=== PATIENT | male | born 1970 | race African-American/Black ===

== ENCOUNTER 2018-09-10 08:38 | Inpatient (IN) | payer MEDICAID, OTHER ==
[~2018-09-10] VITALS: Ht 172.7 cm; Wt 64.5 kg
[2018-09-10 09:34] LABS: BASOPHILS % 0.9 % (0.0-2.0); CHLORIDE 91 mEq/L (98-107); EOSINOPHILS % 0.7 % (0.0-5.0); HEMATOCRIT. 25.4 % (42.0-52.0); HEMOGLOBIN. 9.1 g/dL (14.0-18.0); LYMPHOCYTES % 7.3 % (20.0-50.0); MEAN CORPUSCULAR HEMOGLOBIN 32.7 pg (28.0-32.0); MEAN CORPUSCULAR VOLUME 91.4 fL (80.0-94.0); MEAN PLATELET VOLUME 8.6 fl (7.4-10.4); NEUTROPHILS % 82.1 % (40.0-76.0); PLATELET 87 x1000/uL (130-400); RED BLOOD CELL COUNT 2.78 mill/uL (4.7-6.1); RED CELL DISTRIBUTION WIDTH 15.1 % (11.6-14.6)
[2018-09-10 09:35] LABS: INR 1.1; PROTHROMBIN TIME 11.2 sec (9.6-11.0)
[2018-09-10] MEDS ORDERED: HEPARIN 1000 UNITS/ML 10ML ONE (14:07)
[2018-09-10] MEDS ORDERED: HYDRALAZINE 20MG/ML VIAL IV ONE (14:15)
[2018-09-10 14:54] LABS: HAPTOGLOBIN <31.0 mg/dL (30-200)
[2018-09-10 15:12] LABS: C REACTIVE PROTEIN QUANT 1.8 mg/L (0.0-3.0)
[2018-09-10 15:21] LABS: PHOSPHORUS 8.7 mg/dL (2.5-4.9)
[2018-09-10 16:22] VITALS: BP 204/125
[2018-09-10 16:48] VITALS: BP 207/125
[2018-09-10] MEDS ORDERED: HYDRALAZINE 20MG/ML VIAL IV PRN ×2 (17:45→22:15)
[2018-09-10 18:00] VITALS: BP 209/127
[2018-09-10] MEDS ORDERED: ONDANSETRON HCL 4MG/2ML INJ IV PRN ×2 (19:00→22:15)
[2018-09-10 20:00] VITALS: BP 198/125
[2018-09-10] MEDS: CLONIDINE 0.2MG TABLET PO SCH (21:24)
[2018-09-10 22:00] VITALS: BP 184/100
[2018-09-10] MEDS ORDERED: DIPHENHYDRAMINE 50MG/ML VIAL IV PRN (22:15)
[2018-09-10] MEDS ORDERED: ACETAMINOPHEN 325MG TABLET PO PRN (22:15)
[2018-09-10 23:58] LABS: TOTAL IRON BINDING CAPACITY 253 ug/dL (250-450)
[2018-09-11] VITALS (12 sets, daily range): BP systolic 127–171; BP diastolic 56–105
[2018-09-11] MEDS: CLONIDINE 0.1MG TABLET PO PRN (02:29)
[2018-09-11] MEDS: SODIUM CHLORIDE 0.9% INJ 3ML FLUSH IVF SCH ×3 (06:04→21:24)
[2018-09-11] MEDS: CLONIDINE 0.2MG TABLET PO SCH ×3 (06:04→21:23)
[2018-09-11 06:22] LABS: HEMATOCRIT. 21.7 % (42.0-52.0); HEMOGLOBIN. 7.8 g/dL (14.0-18.0); MEAN CORPUSCULAR HEMOGLOBIN 32.7 pg (28.0-32.0); MEAN CORPUSCULAR VOLUME 91.6 fL (80.0-94.0); MEAN PLATELET VOLUME 8.9 fl (7.4-10.4); PLATELET 73 x1000/uL (130-400); RED BLOOD CELL COUNT 2.37 mill/uL (4.7-6.1); RED CELL DISTRIBUTION WIDTH 15.5 % (11.6-14.6)
[2018-09-11] MEDS: SEVELAMER CARBONATE 800 MG TABLET PO SCH ×3 (07:57→16:35)
[2018-09-11] MEDS: AMLODIPINE 10MG TABLET PO SCH (07:57)
[2018-09-11 08:57] LABS: PLATELET ESTIMATE DECREASED
[2018-09-11 09:20] LABS: CHLORIDE 100 mEq/L (98-107)
[2018-09-11 09:39] LABS: PHOSPHORUS 7.5 mg/dL (2.5-4.9)
[2018-09-11 09:41] LABS: TOTAL IRON BINDING CAPACITY 205 ug/dL (250-450)
[2018-09-11 13:46] LABS: CLARITY URINE CLOUDY (CLEAR); COLOR URINE DARK YELLOW (YELLOW); KETONES URINE NEGATIVE (NEGATIVE); LEUKOCYTE ESTERASE URINE 1+ (NEGATIVE); NITRITE URINE NEGATIVE (NEGATIVE); OCCULT BLOOD URINE 2+ (NEGATIVE); PROTEIN URINE 3+ (NEGATIVE); SPECIFIC GRAVITY URINE 1.014 (1.005-1.030); UROBILINOGEN URINE 0.2 E.U./dL (0.2-1.0)
[2018-09-11] MEDS: EPOETIN ALFA 4000UNITS/ML VIAL SUBCUT SCH (21:23)
[2018-09-12] VITALS (17 sets, daily range): BP systolic 114–150; BP diastolic 61–97
[2018-09-12] MEDS: SODIUM CHLORIDE 0.9% INJ 3ML FLUSH IVF SCH ×3 (05:24→21:50)
[2018-09-12] MEDS: CLONIDINE 0.2MG TABLET PO SCH ×3 (05:30→21:50)
[2018-09-12] MEDS: SEVELAMER CARBONATE 800 MG TABLET PO SCH ×3 (07:20→17:02)
[2018-09-12 07:56] LABS: INR 1.1; PROTHROMBIN TIME 11.6 sec (9.6-11.0)
[2018-09-12 08:02] LABS: BASOPHILS % 0.7 % (0.0-2.0); EOSINOPHILS % 2.3 % (0.0-5.0); LYMPHOCYTES % 10.8 % (20.0-50.0); MEAN CORPUSCULAR HEMOGLOBIN 32.6 pg (28.0-32.0); MEAN CORPUSCULAR VOLUME 93.3 fL (80.0-94.0); MEAN PLATELET VOLUME 10.2 fl (7.4-10.4); MONOCYTES % 11.6 % (2.0-8.0); NEUTROPHILS % 74.6 % (40.0-76.0); PLATELET 94 x1000/uL (130-400); RED BLOOD CELL COUNT 2.12 mill/uL (4.7-6.1); RED CELL DISTRIBUTION WIDTH 16.4 % (11.6-14.6)
[2018-09-12 08:20] LABS: HEMATOCRIT. 19.8 % (42.0-52.0); HEMOGLOBIN. 6.9 g/dL (14.0-18.0)
[2018-09-12 08:26] LABS: CHLORIDE 99 mEq/L (98-107)
[2018-09-12] MEDS: AMLODIPINE 10MG TABLET PO SCH (08:59)
[2018-09-12 17:25] LABS: ANTI-NUCLEAR ANTIBODIES DIRECT Negative (Negative)
[2018-09-12 20:30] LABS: HEMATOCRIT 23.2 % (42.0-52.0)
[2018-09-12 22:49] LABS: HEPATITIS B SURFACE ANTIGEN NEGATIVE
[2018-09-12 23:18] LABS: HEPATITIS A AB IGM NEGATIVE (NEGATIVE)
[2018-09-12 23:46] LABS: INR 1.1; PROTHROMBIN TIME 11.2 sec (9.6-11.0)
[2018-09-13] VITALS (22 sets, daily range): BP systolic 126–181; BP diastolic 76–115
[2018-09-13] MEDS: CLONIDINE 0.2MG TABLET PO SCH ×3 (05:04→22:00)
[2018-09-13] MEDS: SODIUM CHLORIDE 0.9% INJ 3ML FLUSH IVF SCH ×3 (06:02→22:04)
[2018-09-13] MEDS: SEVELAMER CARBONATE 800 MG TABLET PO SCH ×3 (07:20→16:27)
[2018-09-13] MEDS ORDERED: FENTANYL CITRATE/PF 50MCG/ML 2ML VIAL ONE (07:28)
[2018-09-13 08:07] LABS: COMPLEMENT C3 75 mg/dL (82-167)
[2018-09-13] MEDS ORDERED: FENTANYL CITRATE/PF 50MCG/ML 2ML VIAL IV ONE (08:45)
[2018-09-13] MEDS: AMLODIPINE 10MG TABLET PO SCH (09:49)
[2018-09-13 13:08] LABS: HEMATOCRIT 25.1 % (42.0-52.0); HEMOGLOBIN 8.8 g/dL (14.0-18.0)
[2018-09-13 13:10] LABS: ANTI-MYELOPEROXIDASE AB < 9.0 U/mL (0.0-9.0); ANTI-PROTEINASE 3 ABS < 3.5 U/mL (0.0-3.5)
[2018-09-13 13:37] LABS: CHLORIDE 94 mEq/L (98-107)
[2018-09-13 15:06] LABS: ATYPICAL P-ANCA <1:20 titer (Neg:<1:20); CYTOPLASMIC C-ANCA <1:20 titer (Neg:<1:20); PERINUCLEAR P-ANCA <1:20 titer (Neg:<1:20)
[2018-09-13] MEDS ORDERED: POTASSIUM CHLORIDE 20MEQ TABLET SR PO NR (20:15)
[2018-09-13] MEDS: EPOETIN ALFA 4000UNITS/ML VIAL SUBCUT SCH (21:59)
[2018-09-14] VITALS (13 sets, daily range): BP systolic 120–168; BP diastolic 49–108
[2018-09-14] MEDS: CLONIDINE 0.2MG TABLET PO SCH ×3 (05:40→21:33)
[2018-09-14] MEDS: SODIUM CHLORIDE 0.9% INJ 3ML FLUSH IVF SCH ×3 (05:41→21:42)
[2018-09-14] MEDS: SEVELAMER CARBONATE 800 MG TABLET PO SCH ×3 (08:09→17:48)
[2018-09-14] MEDS: AMLODIPINE 5MG TABLET PO SCH ×2 (08:09→21:32)
[2018-09-14] MEDS: EPOETIN ALFA 4000UNITS/ML VIAL SUBCUT SCH (21:33)
[2018-09-14] MEDS ORDERED: POTASSIUM CHLORIDE 20MEQ TABLET SR PO SCH (22:00)
[2018-09-15] VITALS (13 sets, daily range): BP systolic 101–170; BP diastolic 62–107
[2018-09-15] MEDS: SODIUM CHLORIDE 0.9% INJ 3ML FLUSH IVF SCH ×3 (06:14→21:55)
[2018-09-15] MEDS: CLONIDINE 0.2MG TABLET PO SCH ×3 (06:14→22:00)
[2018-09-15 07:56] LABS: INR 1.1; PARTIAL THROMBOPLASTIN TIME 27.9 sec (23.4-31.0); PROTHROMBIN TIME 10.8 sec (9.6-11.0)
[2018-09-15] MEDS: SEVELAMER CARBONATE 800 MG TABLET PO SCH ×3 (09:18→17:38)
[2018-09-15] MEDS: AMLODIPINE 5MG TABLET PO SCH ×2 (09:23→20:40)
[2018-09-15 11:01] LABS: HEMATOCRIT. 22.5 % (42.0-52.0); HEMOGLOBIN. 7.9 g/dL (14.0-18.0); MEAN CORPUSCULAR HEMOGLOBIN 33.3 pg (28.0-32.0); MEAN CORPUSCULAR VOLUME 94.4 fL (80.0-94.0); MEAN PLATELET VOLUME 8.2 fl (7.4-10.4); PLATELET 144 x1000/uL (130-400); RED BLOOD CELL COUNT 2.38 mill/uL (4.7-6.1); RED CELL DISTRIBUTION WIDTH 15.7 % (11.6-14.6)
[2018-09-15 19:31] LABS: PLATELET ESTIMATE NORMAL
[2018-09-15] MEDS ORDERED: EPOETIN ALFA 10000UNITS/ML VIAL SUBCUT NR (21:00)
[2018-09-16] VITALS (13 sets, daily range): BP systolic 114–153; BP diastolic 54–93
[2018-09-16] MEDS: SODIUM CHLORIDE 0.9% INJ 3ML FLUSH IVF SCH ×3 (05:34→21:01)
[2018-09-16] MEDS: CLONIDINE 0.2MG TABLET PO SCH ×3 (05:40→21:02)
[2018-09-16] MEDS: SEVELAMER CARBONATE 800 MG TABLET PO SCH ×3 (08:20→17:44)
[2018-09-16] MEDS: AMLODIPINE 5MG TABLET PO SCH ×2 (08:20→21:02)
[2018-09-16] MEDS: LACTULOSE 20G/30ML UDC PO PRN (11:24)
[2018-09-16 12:44] LABS: BASOPHILS % 0.7 % (0.0-2.0); EOSINOPHILS % 1.9 % (0.0-5.0); HEMATOCRIT. 22.7 % (42.0-52.0); HEMOGLOBIN. 7.9 g/dL (14.0-18.0); LYMPHOCYTES % 10.8 % (20.0-50.0); MEAN CORPUSCULAR HEMOGLOBIN 33.2 pg (28.0-32.0); MEAN CORPUSCULAR VOLUME 95.1 fL (80.0-94.0); MEAN PLATELET VOLUME 8.7 fl (7.4-10.4); NEUTROPHILS % 76.6 % (40.0-76.0); PLATELET 175 x1000/uL (130-400); RED BLOOD CELL COUNT 2.39 mill/uL (4.7-6.1); RED CELL DISTRIBUTION WIDTH 15.7 % (11.6-14.6)
[2018-09-17] VITALS (19 sets, daily range): BP systolic 128–174; BP diastolic 74–109
[2018-09-17] MEDS: SODIUM CHLORIDE 0.9% INJ 3ML FLUSH IVF SCH ×3 (05:08→21:59)
[2018-09-17] MEDS: CLONIDINE 0.2MG TABLET PO SCH ×3 (05:09→22:00)
[2018-09-17 05:45] LABS: BASOPHILS % 0.5 % (0.0-2.0); EOSINOPHILS % 2.1 % (0.0-5.0); HEMATOCRIT. 23.2 % (42.0-52.0); HEMOGLOBIN. 7.9 g/dL (14.0-18.0); LYMPHOCYTES % 9.6 % (20.0-50.0); MEAN CORPUSCULAR HEMOGLOBIN 32.3 pg (28.0-32.0); MEAN CORPUSCULAR VOLUME 95.3 fL (80.0-94.0); MEAN PLATELET VOLUME 8.6 fl (7.4-10.4); NEUTROPHILS % 77.8 % (40.0-76.0); PLATELET 216 x1000/uL (130-400); RED BLOOD CELL COUNT 2.44 mill/uL (4.7-6.1); RED CELL DISTRIBUTION WIDTH 15.4 % (11.6-14.6)
[2018-09-17] MEDS: SEVELAMER CARBONATE 800 MG TABLET PO SCH ×3 (07:43→18:12)
[2018-09-17] MEDS: AMLODIPINE 5MG TABLET PO SCH ×2 (08:27→22:00)
[2018-09-17] MEDS ORDERED: CEFAZOLIN 1000MG PREMIX 50 ML IV ONE ×2 (12:34→13:45)
[2018-09-17] MEDS ORDERED: FENTANYL CITRATE/PF 50MCG/ML 2ML VIAL ONE (12:35)
[2018-09-17] MEDS ORDERED: LIDOCAINE HCL/EPINEPHRINE 1%-EPI 1:100,000 20 ML VIAL ONE (12:37)
[2018-09-17] MEDS ORDERED: SODIUM BICARBONATE 4% (2.4MEQ) 5ML VIAL IV ONE (12:37)
[2018-09-17] MEDS ORDERED: LIDOCAINE HCL 1% 20ML VIAL (Pyxis) INJ ONE (12:38)
[2018-09-17] MEDS ORDERED: HEPARIN 1000 UNITS/ML 10ML ONE (12:44)
[2018-09-17] MEDS ORDERED: FENTANYL CITRATE/PF 50MCG/ML 2ML VIAL IV ONE (13:45)
[2018-09-17 14:58] LABS: HIV SCREEN 4G Non Reactive (Non Reactive)
[2018-09-18 00:33] VITALS: BP 158/92
[2018-09-18 04:27] VITALS: BP 129/80
[2018-09-18] MEDS: CLONIDINE 0.2MG TABLET PO SCH ×3 (06:17→21:15)
[2018-09-18] MEDS: SODIUM CHLORIDE 0.9% INJ 3ML FLUSH IVF SCH ×3 (06:17→21:15)
[2018-09-18 08:00] VITALS: BP 126/78
[2018-09-18] MEDS: SEVELAMER CARBONATE 800 MG TABLET PO SCH (08:24)
[2018-09-18] MEDS: AMLODIPINE 5MG TABLET PO SCH ×2 (08:24→21:12)
[2018-09-18 12:00] VITALS: BP 122/79
[2018-09-18 16:00] VITALS: BP 144/93
[2018-09-18 20:41] VITALS: BP 151/95
[2018-09-18] MEDS: EPOETIN ALFA 4000UNITS/ML VIAL SUBCUT SCH (21:14)
[2018-09-18 22:44] LABS: VITAMIN B12 SERUM 876 pg/mL (211-911)
[2018-09-19 00:03] VITALS: BP 133/73
[2018-09-19 04:46] VITALS: BP 139/89
[2018-09-19] MEDS: SODIUM CHLORIDE 0.9% INJ 3ML FLUSH IVF SCH (06:55)
[2018-09-19] MEDS: LACTULOSE 20G/30ML UDC PO PRN (06:56)
[2018-09-19] MEDS: CLONIDINE 0.2MG TABLET PO SCH (06:56)
[2018-09-19] MEDS: SEVELAMER CARBONATE 800 MG TABLET PO SCH (08:33)
[2018-09-19] MEDS: AMLODIPINE 5MG TABLET PO SCH (08:33)
[2018-09-19 12:00] VITALS: BP 125/79
[2018-09-19 16:00] VITALS: BP 149/93
[2018-09-19] MEDS: CLONIDINE 0.1MG TABLET PO PRN (16:02)
[2018-09-19 16:13] VITALS: BP 149/93
[2018-09-19 17:34] LABS: HEMATOCRIT. 23.7 % (42.0-52.0); MEAN CORPUSCULAR HEMOGLOBIN 32.8 pg (28.0-32.0); MEAN CORPUSCULAR VOLUME 96.4 fL (80.0-94.0); MEAN PLATELET VOLUME 7.7 fl (7.4-10.4); PLATELET 284 x1000/uL (130-400); RED BLOOD CELL COUNT 2.46 mill/uL (4.7-6.1); RED CELL DISTRIBUTION WIDTH 15.6 % (11.6-14.6)
[2018-09-19 17:53] LABS: PLATELET ESTIMATE NORMAL
== END 2018-09-19 17:20 | disposition home or self-care (01) | DRG 660 ==
LOC: ER 08:38 → CANRESERV 13:45 → ENRESERV 13:45 → 3WST 14:16 → EDBEDREQSVC 14:20 → EDBEDREQ 14:39 → ENRESERV 14:40 → 6WST 09-16 22:38
PROVIDERS: ADMIT Internal Medicine; ATTEND Internal Medicine
PROC: 05HY33Z Insertion of Infusion Device into Upper Vein, Percutaneous Approach (ICD-10-PCS; 2018-09-10)
PROC: B543ZZA Ultrasonography of Right Jugular Veins, Guidance (ICD-10-PCS; 2018-09-10)
PROC: 5A1D70Z Performance of Urinary Filtration, Intermittent, Less than 6 Hours Per Day (ICD-10-PCS; 2018-09-10)
PROC: 5A1D70Z Performance of Urinary Filtration, Intermittent, Less than 6 Hours Per Day (ICD-10-PCS; 2018-09-11)
PROC: 30233N1 Transfusion of Nonautologous Red Blood Cells into Peripheral Vein, Percutaneous Approach (ICD-10-PCS; 2018-09-12)
PROC: 0TB13ZX Excision of Left Kidney, Percutaneous Approach, Diagnostic (ICD-10-PCS; principal; 2018-09-13)
PROC: 5A1D70Z Performance of Urinary Filtration, Intermittent, Less than 6 Hours Per Day (ICD-10-PCS; 2018-09-13)
PROC: 5A1D70Z Performance of Urinary Filtration, Intermittent, Less than 6 Hours Per Day (ICD-10-PCS; 2018-09-15)
PROC: 0JH63XZ Insertion of Tunneled Vascular Access Device into Chest Subcutaneous Tissue and Fascia, Percutaneous Approach (ICD-10-PCS; 2018-09-17)
PROC: 02HV33Z Insertion of Infusion Device into Superior Vena Cava, Percutaneous Approach (ICD-10-PCS; 2018-09-17)
PROC: B5181ZA Fluoroscopy of Superior Vena Cava using Low Osmolar Contrast, Guidance (ICD-10-PCS; 2018-09-17)
PROC: B548ZZA Ultrasonography of Superior Vena Cava, Guidance (ICD-10-PCS; 2018-09-17)
PROC: 02PYX3Z Removal of Infusion Device from Great Vessel, External Approach (ICD-10-PCS; 2018-09-17)
DX: M31.1 Thrombotic microangiopathy (principal); N17.9 Acute kidney failure, unspecified; R34 Anuria and oliguria; E87.2 Acidosis; E83.39 Other disorders of phosphorus metabolism; D58.9 Hereditary hemolytic anemia, unspecified; E87.1 Hypo-osmolality and hyponatremia; I10 Essential (primary) hypertension; D50.9 Iron deficiency anemia, unspecified; K59.00 Constipation, unspecified; R17 Unspecified jaundice; R74.0 Nonspecific elevation of levels of transaminase and lactic acid dehydrogenase [LDH]; M13.0 Polyarthritis, unspecified; Z86.61 Personal history of infections of the central nervous system; Z87.891 Personal history of nicotine dependence; Z99.2 Dependence on renal dialysis
CPT/HCPCS: 36415; 36558; 36589; 71045; 74176; 76942; 77001; 80048; 80076; 81003; 82378; 82607; 83010; 83090; 83520; 83540; 83550; 83615; 84100; 84132; 85014; 85018; 85049; 85240; 85384; 85397; 85651; 86038; 86140; 86160; 86256; 86705; 86709; 86803; 86850; 86900; 86920; 87340; 87389; 88305; 88346; 88348; 93005; 96374; 97162; 97166; 99152; 99153; 99285; C1750; C1752; C1769; J0360; J0690; J0885; J1200; J1644; J2405; J3010; J3490; P9016; G0500

== ENCOUNTER 2018-10-20 05:27 | Inpatient (IN) | payer MEDICAID ==
[~2018-10-20] VITALS: Ht 172.7 cm; Wt 64.4 kg
[2018-10-20] VITALS (93 sets, daily range): BP systolic 107–162; BP diastolic 59–103
[2018-10-20] MEDS ORDERED: ONDANSETRON HCL 4MG/2ML INJ IV STA (05:36)
[2018-10-20] MEDS ORDERED: LABETALOL 5MG/ML SYR 20 MG/4 ML SYRINGE IV ONE ×2 (05:45→06:00)
[2018-10-20] MEDS ORDERED: NICARDIPINE 50 MG in SODIUM CHLORIDE 0.9% 230 ML IV STA (05:50)
[2018-10-20] MEDS ORDERED: NICARDIPINE 40MG/200ML PREMIX 200 ML IV SCH (06:00)
[2018-10-20 06:24] LABS: HEMATOCRIT. 26.9 % (42.0-52.0); HEMOGLOBIN. 9.1 g/dL (14.0-18.0); MEAN CORPUSCULAR HEMOGLOBIN 30.6 pg (28.0-32.0); MEAN CORPUSCULAR VOLUME 90.4 fL (80.0-94.0); MEAN PLATELET VOLUME 7.1 fl (7.4-10.4); PLATELET 252 x1000/uL (130-400); RED BLOOD CELL COUNT 2.98 mill/uL (4.7-6.1); RED CELL DISTRIBUTION WIDTH 13.2 % (11.6-14.6)
[2018-10-20 06:26] LABS: CHLORIDE 99 mEq/L (98-107)
[2018-10-20 06:30] LABS: ETHANOL BLOOD < 10 mg/dL
[2018-10-20] MEDS ORDERED: NICARDIPINE 100 MG in SODIUM CHLORIDE 0.9% 60 ML IV PRN ×2 (06:45→08:15)
[2018-10-20] MEDS ORDERED: PROPOFOL 10MG/ML 100ML 100 ML IV SCH (06:45)
[2018-10-20] MEDS ORDERED: DEXT 5%/LACTATED RINGERS 1,000 ML IV SCH (06:45)
[2018-10-20 06:54] LABS: PLATELET ESTIMATE NORMAL
[2018-10-20] MEDS ORDERED: CEFAZOLIN 1000MG PREMIX 50 ML IV SCH (08:00)
[2018-10-20] MEDS: NICARDIPINE 100 MG in SODIUM CHLORIDE 0.9% 60 ML IV PRN ×2 (08:15→18:23)
[2018-10-20] MEDS ORDERED: MORPHINE SULFATE 4 MG/ML CPJ (NOT FOR IM USE) IV NR (08:17)
[2018-10-20] MEDS ORDERED: MORPHINE SULFATE 4 MG/ML CPJ (NOT FOR IM USE) IV ONE ×2 (08:17→09:17)
[2018-10-20 08:28] LABS: BG BASE EXCESS 2.4 mmol/L (-2.0-2.0); BG CARBOXYHEMOGLOBIN 0.3 % (0.5-1.5); BG DEOXYHEMOGLOBIN 1.2 % (0.0-5.0); BG FRACTION INSPIRED OXYGEN 100; BG HCO3 ACT 26.1 mmol/L (22.0-26.0); BG METHEMOGLOBIN 0.1 % (0.0-1.5); BG OXYGEN SATURATION 98.8 % (92.0-98.5); BG OXYHEMOGLOBIN 98.4 % (94.0-97.0); BG PCO2 37.2 mmHg (35.0-45.0); BG PH 7.464 (7.350-7.450); BG SAMPLE SITE LEFT BRACHIAL; BG TIDAL VOLUME(mL) 500 mL; BG TOTAL HEMOGLOBIN 11.4 g/dL (12.0-18.0); BG VENT MODE VENT - A/C; BG VENT RATE 14 set
[2018-10-20] MEDS ORDERED: MORPHINE SULFATE 2 MG/ML CPJ (NOT FOR IM USE) IV NR (08:31)
[2018-10-20] MEDS ORDERED: MORPHINE SULFATE 2 MG/ML CPJ (NOT FOR IM USE) IV ONE (08:32)
[2018-10-20] MEDS ORDERED: LEVETIRACETAM 500MG PREMIX 100 ML IV SCH (09:00)
[2018-10-20] MEDS ORDERED: FENTANYL CITRATE/PF 1,000 MCG in SODIUM CHLORIDE 0.9% 80 ML IV PRN (09:00)
[2018-10-20] MEDS ORDERED: MORPHINE SULFATE 10 MG/ML CPJ IV NR (09:23)
[2018-10-20] MEDS ORDERED: SODIUM CHLORIDE 0.9% 250 ML IV ONE (10:01)
[2018-10-20] MEDS ORDERED: ONDANSETRON HCL 4MG/2ML INJ IV PRN (10:15)
[2018-10-20] MEDS ORDERED: ACETAMINOPHEN 650MG SUPP PR PRN (10:15)
[2018-10-20] MEDS ORDERED: NITROGLYCERIN 0.4MG TABLET SL SL PRN (10:15)
[2018-10-20] MEDS ORDERED: MORPHINE SULFATE 4 MG/ML CPJ (NOT FOR IM USE) IV PRN (10:15)
[2018-10-20] MEDS ORDERED: DEXT 5%/0.45% NACL 1000ML 1,000 ML IV SCH (10:15)
[2018-10-20] MEDS ORDERED: CLONIDINE 0.1MG TABLET PO PRN (10:15)
[2018-10-20] MEDS ORDERED: EPINEPHRINE 0.1MG/ML (1:10,000) 10ML SYR IV PRN (10:15)
[2018-10-20] MEDS ORDERED: ATROPINE SULFATE 1MG/10ML SYR IV PRN (10:15)
[2018-10-20] MEDS ORDERED: IPRATROPIUM BROMIDE (0.02%) 0.5MG/2.5ML NEB HHN PRN (10:15)
[2018-10-20] MEDS ORDERED: ACETAMINOPHEN 650MG/20.3ML UDC GT PRN (10:15)
[2018-10-20] MEDS ORDERED: LIDOCAINE 2G PREMIX 500 ML IV PRN (10:15)
[2018-10-20] MEDS ORDERED: LIDOCAINE HCL 2% 5ML SYRINGE IV PRN (10:15)
[2018-10-20] MEDS ORDERED: DEXTROSE 50% WATER 50ML SYRINGE IV PRN ×2 (10:30)
[2018-10-20] MEDS: CEFAZOLIN 500MG in DEXTROSE 5% WATER 50ML IV SCH (11:00)
[2018-10-20 11:26] LABS: INR 1.2; PARTIAL THROMBOPLASTIN TIME 26.2 sec (23.4-31.0); PROTHROMBIN TIME 12.2 sec (9.6-11.0)
[2018-10-20] MEDS ORDERED: IPRATROPIUM/ALBUTEROL 0.5-3(2.5)MG/3ML NEB HHN SCH (12:00)
[2018-10-20] MEDS: DEXT 5%/0.9% NACL 1,000 ML IV SCH (12:00)
[2018-10-20] MEDS ORDERED: VANCOMYCIN 1250MG in DEXTROSE 5% WATER 250ML IV SCH (12:30)
[2018-10-20] MEDS: LEVETIRACETAM 500MG in SODIUM CHLORIDE 0.9% 100ML IV SCH ×2 (12:44→23:53)
[2018-10-20] MEDS: PROPOFOL 10MG/ML 100ML 100 ML IV PRN ×3 (12:46→23:53)
[2018-10-20] MEDS: BLOOD SUGAR DIAGNOSTIC STRIP TEST SCH ×2 (13:00→17:30)
[2018-10-20] MEDS: FAMOTIDINE 20MG/2ML VIAL IV SCH (13:21)
[2018-10-20] MEDS: DEXAMETHASONE 4MG/ML 1ML VIAL IV SCH ×3 (13:21→23:53)
[2018-10-20] MEDS: PIPERACILLIN/TAZOBACTAM 2.25 G in DEXTROSE 5% WATER 50 ML IV SCH ×3 (13:21→23:53)
[2018-10-20] MEDS: INSULIN LISPRO 100 UNITS/ML SUBCUT SCH ×2 (13:22→17:30)
[2018-10-20 14:16] LABS: CLARITY URINE CLOUDY (CLEAR); COLOR URINE YELLOW (YELLOW); KETONES URINE NEGATIVE (NEGATIVE); LEUKOCYTE ESTERASE URINE 2+ (NEGATIVE); NITRITE URINE NEGATIVE (NEGATIVE); OCCULT BLOOD URINE 2+ (NEGATIVE); PH URINE >=9.0 (4.5-8.0); PROTEIN URINE 4+ (NEGATIVE); SPECIFIC GRAVITY URINE 1.014 (1.005-1.030)
[2018-10-20] MEDS: IPRATROPIUM BROMIDE (0.02%) 0.5MG/2.5ML NEB HHN SCH ×2 (14:20→21:00)
[2018-10-20 14:50] LABS: *AMPHETAMINES SCREEN URINE NEGATIVE (NEGATIVE); *BARBITURATES SCREEN URINE NEGATIVE (NEGATIVE); *BENZODIAZEPINES SCREEN URINE NEGATIVE (NEGATIVE); *COCAINE SCREEN URINE NEGATIVE (NEGATIVE)
[2018-10-20 14:51] LABS: CANNABINOID URINE SCREEN PRESUMTIVE POSITIVE (NEGATIVE); METHADONE URINE SCREEN NEGATIVE (NEGATIVE); OPIATES URINE SCREEN NEGATIVE (NEGATIVE); PHENCYCLIDINE URINE SCREEN NEGATIVE (NEGATIVE)
[2018-10-20 16:51] LABS: CREATINE KINASE MB FRACTION 4.7 ng/mL (0.5-3.6)
[2018-10-21] VITALS (94 sets, daily range): BP systolic 102–144; BP diastolic 52–94
[2018-10-21] MEDS: IPRATROPIUM BROMIDE (0.02%) 0.5MG/2.5ML NEB HHN SCH ×4 (00:22→19:45)
[2018-10-21] MEDS: PROPOFOL 10MG/ML 100ML 100 ML IV PRN ×4 (04:42→21:02)
[2018-10-21 04:52] LABS: HEMATOCRIT. 23.4 % (42.0-52.0); MEAN CORPUSCULAR HEMOGLOBIN 30.8 pg (28.0-32.0); MEAN CORPUSCULAR VOLUME 89.7 fL (80.0-94.0); MEAN PLATELET VOLUME 7.5 fl (7.4-10.4); PLATELET 185 x1000/uL (130-400); RED CELL DISTRIBUTION WIDTH 13.1 % (11.6-14.6)
[2018-10-21 04:58] LABS: CHLORIDE 103 mEq/L (98-107)
[2018-10-21 05:12] LABS: CREATINE KINASE MB FRACTION 5.9 ng/mL (0.5-3.6)
[2018-10-21] MEDS: BLOOD SUGAR DIAGNOSTIC STRIP TEST SCH ×5 (05:59→23:27)
[2018-10-21] MEDS: INSULIN LISPRO 100 UNITS/ML SUBCUT SCH ×5 (05:59→23:27)
[2018-10-21] MEDS: PIPERACILLIN/TAZOBACTAM 2.25 G in DEXTROSE 5% WATER 50 ML IV SCH ×2 (05:59→11:23)
[2018-10-21] MEDS: DEXAMETHASONE 4MG/ML 1ML VIAL IV SCH ×4 (05:59→23:00)
[2018-10-21 08:13] LABS: BG BASE EXCESS 1.1 mmol/L (-2.0-2.0); BG CARBOXYHEMOGLOBIN 0.3 % (0.5-1.5); BG DEOXYHEMOGLOBIN 1.3 % (0.0-5.0); BG FRACTION INSPIRED OXYGEN 40; BG METHEMOGLOBIN 0.3 % (0.0-1.5); BG OXYGEN SATURATION 98.7 % (92.0-98.5); BG OXYHEMOGLOBIN 98.1 % (94.0-97.0); BG PCO2 42.8 mmHg (35.0-45.0); BG PH 7.402 (7.350-7.450); BG SAMPLE SITE RIGHT RADIAL; BG TIDAL VOLUME(mL) 500 mL; BG TOTAL HEMOGLOBIN 11.1 g/dL (12.0-18.0); BG VENT MODE VENT - A/C; BG VENT RATE 14 set
[2018-10-21] MEDS: LEVETIRACETAM 500MG in SODIUM CHLORIDE 0.9% 100ML IV SCH ×2 (08:20→21:01)
[2018-10-21] MEDS: FAMOTIDINE 20MG/2ML VIAL IV SCH (08:22)
[2018-10-21] MEDS: MORPHINE SULFATE 4 MG/ML CPJ (NOT FOR IM USE) IV PRN ×6 (08:23→23:03)
[2018-10-21] MEDS: CEFAZOLIN 500MG in DEXTROSE 5% WATER 50ML IV SCH (09:35)
[2018-10-21] MEDS: NICARDIPINE 100 MG in SODIUM CHLORIDE 0.9% 60 ML IV PRN ×2 (09:37→18:59)
[2018-10-21] MEDS: SODIUM CHLORIDE 0.9% INJ 3ML FLUSH IVF SCH ×2 (10:15→18:15)
[2018-10-21 10:59] LABS: PLATELET ESTIMATE NORMAL
[2018-10-21] MEDS: CEFEPIME 1,000 MG in DEXTROSE 5% WATER 50 ML IV SCH (15:20)
[2018-10-21] MEDS: DEXT 5%/0.9% NACL 1,000 ML IV SCH (15:20)
[2018-10-21 16:05] LABS: HEMATOCRIT 21.2 % (42.0-52.0); HEMOGLOBIN 7.4 g/dL (14.0-18.0)
[2018-10-21] MEDS ORDERED: VANCOMYCIN 500 MG PREMIX 100 ML IV SCH (17:00)
[2018-10-22] VITALS (128 sets, daily range): BP systolic 113–173; BP diastolic 51–77
[2018-10-22] MEDS: PROPOFOL 10MG/ML 100ML 100 ML IV PRN ×5 (01:25→21:58)
[2018-10-22] MEDS: NICARDIPINE 100 MG in SODIUM CHLORIDE 0.9% 60 ML IV PRN ×3 (01:26→15:03)
[2018-10-22] MEDS: MORPHINE SULFATE 4 MG/ML CPJ (NOT FOR IM USE) IV PRN ×8 (01:26→20:44)
[2018-10-22] MEDS: IPRATROPIUM BROMIDE (0.02%) 0.5MG/2.5ML NEB HHN SCH ×4 (01:59→20:16)
[2018-10-22] MEDS: SODIUM CHLORIDE 0.9% INJ 3ML FLUSH IVF SCH ×3 (03:08→17:46)
[2018-10-22 05:55] LABS: HEMATOCRIT. 21.4 % (42.0-52.0); HEMOGLOBIN. 7.3 g/dL (14.0-18.0); MEAN CORPUSCULAR HEMOGLOBIN 30.9 pg (28.0-32.0); MEAN CORPUSCULAR VOLUME 90.3 fL (80.0-94.0); MEAN PLATELET VOLUME 8.3 fl (7.4-10.4); PLATELET 207 x1000/uL (130-400); RED BLOOD CELL COUNT 2.37 mill/uL (4.7-6.1); RED CELL DISTRIBUTION WIDTH 13.2 % (11.6-14.6)
[2018-10-22] MEDS: INSULIN LISPRO 100 UNITS/ML SUBCUT SCH ×4 (06:00→23:07)
[2018-10-22] MEDS: BLOOD SUGAR DIAGNOSTIC STRIP TEST SCH ×4 (06:08→23:07)
[2018-10-22] MEDS: DEXAMETHASONE 4MG/ML 1ML VIAL IV SCH ×2 (06:08→12:00)
[2018-10-22] MEDS ORDERED: INSULIN REGULAR (HUMULIN R) 300UNITS/3ML SUBCUT NR (08:15)
[2018-10-22] MEDS ORDERED: SODIUM POLYSTYRENE SULFONATE 15 G/60 ML BOT NG NR (08:15)
[2018-10-22] MEDS ORDERED: DEXTROSE 50% WATER 50ML SYRINGE IV NR (08:15)
[2018-10-22 08:37] LABS: PLATELET ESTIMATE NORMAL
[2018-10-22] MEDS: LEVETIRACETAM 500MG in SODIUM CHLORIDE 0.9% 100ML IV SCH ×2 (09:07→20:21)
[2018-10-22] MEDS: FAMOTIDINE 20MG/2ML VIAL IV SCH (09:07)
[2018-10-22] MEDS: DEXT 5%/0.9% NACL 1,000 ML IV SCH (09:09)
[2018-10-22] MEDS: CEFEPIME 1,000 MG in DEXTROSE 5% WATER 50 ML IV SCH (15:12)
[2018-10-22] MEDS: METRONIDAZOLE 500 MG PREMIX 100 ML IV SCH (15:32)
[2018-10-22] MEDS ORDERED: VANCOMYCIN 500 MG PREMIX 100 ML IV SCH (17:00)
[2018-10-22] MEDS ORDERED: LEVETIRACETAM 500MG PREMIX 100 ML IV ONE (20:45)
[2018-10-22] MEDS ORDERED: LEVETIRACETAM 1,000 MG in SODIUM CHLORIDE 0.9% 100 ML IV SCH (22:00)
[2018-10-23] VITALS (59 sets, daily range): BP systolic 36–128; BP diastolic 15–77
[2018-10-23] MEDS: NICARDIPINE 100 MG in SODIUM CHLORIDE 0.9% 60 ML IV PRN (01:16)
[2018-10-23] MEDS: SODIUM CHLORIDE 0.9% INJ 3ML FLUSH IVF SCH (02:18)
[2018-10-23] MEDS: PROPOFOL 10MG/ML 100ML 100 ML IV PRN ×2 (02:19→07:52)
[2018-10-23] MEDS: DEXT 5%/0.9% NACL 1,000 ML IV SCH (04:01)
[2018-10-23] MEDS: METRONIDAZOLE 500 MG PREMIX 100 ML IV SCH (05:05)
[2018-10-23] MEDS: INSULIN LISPRO 100 UNITS/ML SUBCUT SCH (05:06)
[2018-10-23] MEDS: BLOOD SUGAR DIAGNOSTIC STRIP TEST SCH (05:06)
[2018-10-23 05:21] LABS: HEMATOCRIT. 22.2 % (42.0-52.0); HEMOGLOBIN. 7.6 g/dL (14.0-18.0); MEAN CORPUSCULAR VOLUME 90.5 fL (80.0-94.0); PLATELET 213 x1000/uL (130-400); RED BLOOD CELL COUNT 2.46 mill/uL (4.7-6.1); RED CELL DISTRIBUTION WIDTH 13.4 % (11.6-14.6)
[2018-10-23 05:28] LABS: CHLORIDE 105 mEq/L (98-107)
[2018-10-23] MEDS: IPRATROPIUM BROMIDE (0.02%) 0.5MG/2.5ML NEB HHN SCH (08:45)
[2018-10-23 09:08] LABS: BG BASE EXCESS -4.4 mmol/L (-2.0-2.0); BG CARBOXYHEMOGLOBIN 0.2 % (0.5-1.5); BG DEOXYHEMOGLOBIN 1.1 % (0.0-5.0); BG FRACTION INSPIRED OXYGEN 40; BG HCO3 ACT 20.5 mmol/L (22.0-26.0); BG METHEMOGLOBIN 0.4 % (0.0-1.5); BG OXYGEN SATURATION 98.9 % (92.0-98.5); BG OXYHEMOGLOBIN 98.3 % (94.0-97.0); BG PCO2 36.6 mmHg (35.0-45.0); BG PH 7.366 (7.350-7.450); BG PO2 219.9 mmHg (75.0-100.0); BG SAMPLE SITE RIGHT RADIAL; BG TIDAL VOLUME(mL) 500 mL; BG TOTAL HEMOGLOBIN 8.1 g/dL (12.0-18.0); BG VENT MODE VENT - A/C; BG VENT RATE 14 set
[2018-10-23 09:28] LABS: PLATELET ESTIMATE NORMAL
[2018-10-23 12:35] LABS: BG CARBOXYHEMOGLOBIN 0.2 % (0.5-1.5); BG DEOXYHEMOGLOBIN 0.8 % (0.0-5.0); BG FRACTION INSPIRED OXYGEN 100; BG HCO3 ACT 21.2 mmol/L (22.0-26.0); BG METHEMOGLOBIN 0.8 % (0.0-1.5); BG OXYGEN SATURATION 99.2 % (92.0-98.5); BG OXYHEMOGLOBIN 98.2 % (94.0-97.0); BG PCO2 44.5 mmHg (35.0-45.0); BG PH 7.296 (7.350-7.450); BG PO2 563.9 mmHg (75.0-100.0); BG SAMPLE SITE RIGHT BRACHIAL; BG TOTAL HEMOGLOBIN 8.2 g/dL (12.0-18.0); BG VENT MODE VENT - A/C; BG VENT RATE 10 set
[2018-10-23 13:12] LABS: BG BASE EXCESS -4.3 mmol/L (-2.0-2.0); BG CARBOXYHEMOGLOBIN 0.2 % (0.5-1.5); BG DEOXYHEMOGLOBIN 0.5 % (0.0-5.0); BG FRACTION INSPIRED OXYGEN 6; BG METHEMOGLOBIN 0.1 % (0.0-1.5); BG OXYGEN SATURATION 99.5 % (92.0-98.5); BG OXYHEMOGLOBIN 99.2 % (94.0-97.0); BG PCO2 46.5 mmHg (35.0-45.0); BG PH 7.293 (7.350-7.450); BG PO2 583.2 mmHg (75.0-100.0); BG SAMPLE SITE RIGHT RADIAL; BG TOTAL HEMOGLOBIN 8.6 g/dL (12.0-18.0); BG VENT MODE NASAL CANNULA
== END 2018-10-23 14:51 | disposition expired | DRG 710 ==
LOC: ER 05:27 → ENRESERV 07:20 → MICUNO 08:12
PROVIDERS: ADMIT Internal Medicine Geriatric Medicine; ATTEND Internal Medicine Geriatric Medicine
PROC: 009630Z Drainage of Cerebral Ventricle with Drainage Device, Percutaneous Approach (ICD-10-PCS; principal; 2018-10-20)
PROC: 0BH17EZ Insertion of Endotracheal Airway into Trachea, Via Natural or Artificial Opening (ICD-10-PCS; 2018-10-20)
PROC: 5A1945Z Respiratory Ventilation, 24-96 Consecutive Hours (ICD-10-PCS; 2018-10-20)
PROC: 5A1D70Z Performance of Urinary Filtration, Intermittent, Less than 6 Hours Per Day (ICD-10-PCS; 2018-10-20)
PROC: 02HV33Z Insertion of Infusion Device into Superior Vena Cava, Percutaneous Approach (ICD-10-PCS; 2018-10-20)
PROC: B548ZZA Ultrasonography of Superior Vena Cava, Guidance (ICD-10-PCS; 2018-10-20)
PROC: 5A1D70Z Performance of Urinary Filtration, Intermittent, Less than 6 Hours Per Day (ICD-10-PCS; 2018-10-22)
PROC: 30233N1 Transfusion of Nonautologous Red Blood Cells into Peripheral Vein, Percutaneous Approach (ICD-10-PCS; 2018-10-22)
DX: A41.9 Sepsis, unspecified organism (principal); I61.5 Nontraumatic intracerebral hemorrhage, intraventricular; I46.9 Cardiac arrest, cause unspecified; J96.00 Acute respiratory failure, unspecified whether with hypoxia or hypercapnia; G92 Toxic encephalopathy; G91.9 Hydrocephalus, unspecified; I13.11 Hypertensive heart and chronic kidney disease without heart failure, with stage 5 chronic kidney disease, or end stage renal disease; M54.2 Cervicalgia; E11.65 Type 2 diabetes mellitus with hyperglycemia; R79.89 Other specified abnormal findings of blood chemistry; D63.1 Anemia in chronic kidney disease; E87.5 Hyperkalemia; F17.210 Nicotine dependence, cigarettes, uncomplicated; N39.0 Urinary tract infection, site not specified; I16.1 Hypertensive emergency; N18.6 End stage renal disease; Z86.61 Personal history of infections of the central nervous system; Z99.2 Dependence on renal dialysis; Z82.49 Family history of ischemic heart disease and other diseases of the circulatory system
CPT/HCPCS: 36415; 36573; 36600; 71045; 78610; 80048; 80202; 80305; 80307; 80320; 80329; 81003; 82140; 82375; 82553; 82805; 82947; 82962; 83036; 83605; 84132; 84478; 84484; 85014; 85018; 85384; 86850; 86900; 86920; 93005; 93306; 93970; 94002; 94003; 94640; 96374; 99291; A6261; A9512; C1725; J0690; J0692; J1100; J1815; J1953; J2270; J2405; J2543; J2704; J3370; J3490; J7042; J7050; J7060; P9016; A4315; G0480